=== PATIENT | female | born 1990 | race Caucasian/White ===

== ENCOUNTER 2024-03-14 22:05 | Emergency (ER) | payer OTHER, SELFPAY ==
[2024-03-14 22:08] VITALS: BP 141/74; PULSE 73; RESP 16; TEMP 36.5; O2SAT 100; BMI 21.2
--- NOTE | 2024-03-14 22:13 | CT_ITS ---
PROCEDURE INFORMATION: Exam: CTA Head With Contrast, Venography Exam date and time: 03/14/2024 11:12 PM Age: 33 years old Clinical indication: Pain; Headache; Additional info: Severe headache TECHNIQUE: Imaging protocol: Computed tomography angiography of the head with contrast. Exam focused on the veins. 3D rendering (Not supervised by radiologist): MIP and/or 3D reconstructed images were created by the technologist. Radiation optimization: All CT scans at this facility use at least one of these dose optimization techniques: automated exposure control; mA and/or kV adjustment per patient size (includes targeted exams where dose is matched to clinical indication); or iterative reconstruction. Contrast material: ISOVUE; Contrast volume: 80 ml; Contrast route: INTRAVENOUS (IV); COMPARISON: CT HEAD/BRAIN WO CON 03/14/2024 11:09 PM FINDINGS: Superior sagittal sinus: Patent. Straight sinus: Patent. Transverse sinuses: Patent. Sigmoid sinuses: Patent. Internal jugular veins: Limited visualized internal jugular veins are patent. Brain: No definite mass, mass effect, or midline shift. Cerebral ventricles: No ventriculomegaly. Soft tissues: Unremarkable. IMPRESSION: No venous thrombosis.
--- NOTE | 2024-03-14 22:13 | CT_ITS ---
PROCEDURE INFORMATION: Exam: CT Head Without Contrast Exam date and time: 03/14/2024 11:09 PM Age: 33 years old Clinical indication: Pain; Headache; Additional info: Severe headache TECHNIQUE: Imaging protocol: Computed tomography of the head without contrast. Radiation optimization: All CT scans at this facility use at least one of these dose optimization techniques: automated exposure control; mA and/or kV adjustment per patient size (includes targeted exams where dose is matched to clinical indication); or iterative reconstruction. COMPARISON: No relevant prior studies available. FINDINGS: Brain: Normal. No hemorrhage. Unremarkable white matter. No mass effect. Cerebral ventricles: No ventriculomegaly. Paranasal sinuses: Minimal left maxillary sinus mucosal thickening. Mild left ethmoid air cell mucosal thickening. Trace fluid in the left frontal sinus. Mastoid air cells: Visualized mastoid air cells are well aerated. Bones: Deformity of the left nasal bone. Soft tissues: Unremarkable. IMPRESSION: 1. No acute intracranial findings. Mild sinus disease. 2. Age indeterminate left nasal bone fracture.
--- NOTE | 2024-03-14 22:16 | ED_ITS ---
Discharge Plan Disposition Patient Disposition: Home, Self-Care Referrals Follow up/Referrals: Provider,MD Олег [Primary Care Provider] - See instructions Activity Restrictions/Add. Instructions Additional Instructions/Restrictions: Please follow-up with your primary care provider. Please return to the emergency department if you develop any new or worsening symptoms or become concerned for your health. Clinical Impressions Clinical Impression: Headache Qualifiers: Headache chronicity pattern: acute headache Print Language Print Language: [place] Discharge ED Provider: Clarke Galvan General Adult HPI <Clarke Galvan MD - Last Filed: 03/14/24 23:00> General Chief complaint: Headache Stated complaint: NGUYEN Time Seen by Provider: 03/14/24 22:07 Mode of Arrival: Ambulatory Source of Information: Patient Limitations: No Limitations Description of Symptoms (Recalled from ER Triage Doc. by RN): Pt states she has intense headache Pt will not open eyes and speech weak Pupils equal and reactive. Pain in front left of head HX of migrane History of Present Illness HPI narrative: Patient is a 33-year-old female who has past medical history of migraines not on controlled medication approximately 2 times a month presents to the emergency department for evaluation of headache. Onset was acute, over the last 30 minutes, bitemporal and retro-ocular left-sided worse than right. She has associated photophobia and phonophobia. No gait difficulties, no speech difficulties. No trauma. Denies ingestions. Due to severe symptoms she presents here for continued evaluation. Related Data Allergies Allergy/AdvReac Type Severity Reaction Status Date / Time No Known Allergies Allergy Verified 03/14/24 22:29 PFSH <Clarke Galvan MD - Last Filed: 03/14/24 23:00> PFS Disclaimer: The information contained in this section may have been updated after the patient was seen, as this information can be updated by other users. Social History (Updated 03/14/24 @ 23:00 by Clarke Galvan MD) Smoking Status: Current every day smoker alcohol intake: never current occupational status: other <Clarke Galvan MD - Last Filed: 03/14/24 23:00> ROS Obtained: Yes Systems reviewed as appropriate & no additional complaints except as documented Physical Exam <Clarke Galvan MD - Last Filed: 03/14/24 23:00> General General appearance: alert Comment: Appearing in pain in bed Head Head exam: atraumatic and normocephalic Eye Eye exam: Present PERRL and EOMI ENT ENT exam: Present mucous membranes moist Neck Neck exam: Present normal inspection Chest Chest inspection: Present normal inspection and symmetric chest wall rise Respiratory Respiratory exam: Present normal lung sounds bilaterally; Absent respiratory distress Cardiovascular Cardiovascular exam: Present regular rate and normal rhythm Abdominal Exam Abdominal exam: Present soft; Absent tenderness Extremities Exam Extremities exam: Present normal inspection Neurological Exam Neurological exam: Present alert and CN II-XII intact; Absent motor sensory deficit Psychiatric Psychiatric exam: Present normal affect Skin Skin exam: Present warm and dry Medical Decision Making <Clarke Galvan MD - Last Filed: 03/14/24 23:00> Medical Records Screening: Per USPSTF and CDC recommendations, given the prevalence of disease in our region, it is our hospital?s policy to screen for HIV and viral Hepatitis for all patients aged 18 and over and those with ongoing risk factors. Raj Inquiry Pt receiving controlled substance: No Vital Signs: 03/14/24 22:08 03/14/24 22:30 03/14/24 23:01 Temperature 97.7 F Temperature Source Axillary Pulse Rate Pulse Rate [Right Brachial] 73 Respiratory Rate 16 Blood Pressure 132/80 138/82 Blood Pressure [Right Arm] 141/74 H Blood Pressure Mean 103 100 Blood Pressure Mean [Right Arm] 96 Blood Pressure Source Blood Pressure Source [Right Arm] Automatic Cuff Blood Pressure Position [Right Arm] Supine 02 Sat by Pulse Oximetry 100 Oxygen Delivery Method Room Air 03/14/24 23:30 03/15/24 00:00 03/15/24 00:43 Temperature 98.0 F Temperature Source Oral Pulse Rate 70 70 Pulse Rate [Right Brachial] Respiratory Rate 19 20 Blood Pressure 97/49 L 93/54 L 111/64 Blood Pressure [Right Arm] Blood Pressure Mean 65 Blood Pressure Mean [Right Arm] Blood Pressure Source Automatic Cuff Blood Pressure Source [Right Arm] Blood Pressure Position [Right Arm] 02 Sat by Pulse Oximetry 98 Oxygen Delivery Method Room Air Lab Data Lab Results 03/14/24 22:19: WBC 16.4 H, RBC 4.79, Hgb 12.8, Hct 38.2, MCV 79.7 L, MCH 26.7 L , MCHC 33.5, RDW 19.3 H, Plt Count 300, MPV 7.8, Neut % (Auto) 78.6, Lymph % (Auto) 14.8, [place] % (Auto) 3.2, Eos % (Auto) 2.8, Baso % (Auto) 0.6, Neut # (Auto) 12.9 H, Lymph # (Auto) 2.4, [place] # (Auto) 0.5, Eos # (Auto) 0.5 H, Baso # (Auto) 0.1, Total Counted 100, Neutrophils % (Manual) 79 H, Lymphocytes % (Manual) 15, Monocytes % (Manual) 3, Eosinophils % (Manual) 3, Platelet Estimate Normal, Anisocytosis 1+, Microcytosis 1+, Sodium 139, Potassium 3.5, Chloride 107, Carbon Dioxide 26, Anion Gap 9.5, BUN 11, Creatinine 0.60, Estimated Creat Clear 117, Estimated GFR 117, Est GFR ( Amer) 141, Glucose 127 H, Calcium 8.8, Total Bilirubin 0.5, AST 21, ALT 15, Alkaline Phosphatase 58, Total Protein 6.1 L, Albumin 4.2, Globulin 1.9, Albumin/Globulin Ratio 2.2 H, Serum HCG, Qual Negative, Plasma/Serum Alcohol < 10 03/14/24 23:00: SARS-CoV-2 (PCR) Not detected, Influenza A Untype (PCR) Not detected, Influenza Type B (PCR) Not detected 03/14/24 22:19 03/14/24 22:19 Orders (Tests/Meds): ED MEDICATIONS Generic Name Dose Route Start Last Admin Trade Name Freq PRN Reason Stop Dose Admin Sodium Chloride 10 ml 03/14/24 23:19 03/14/24 23:20 Sodium Chloride 0.9% 10ml Syr (Rad Only) IV 04/13/24 23:18 10 ml NEEDED PRN Administration Maintain IV Site Discontinued Medications Generic Name Dose Route Start Last Admin Trade Name Freq PRN Reason Stop Dose Admin Acetaminophen 1,000 mg 03/14/24 22:13 03/14/24 22:35 Acetaminophen 1,000mg/100ml Vial IV 03/14/24 22:14 1,000 mg ONCE ONE Administration Diphenhydramine HCl 25 mg 03/14/24 22:15 03/14/24 22:41 Diphenhydramine 50mg/Ml Vial IV 03/14/24 22:16 25 mg ONCE ONE Administration Iopamidol 80 ml 03/14/24 23:19 03/14/24 23:20 Iopamidol-370 (76%);100ml Bottle IV 03/14/24 23:20 80 ml ONCE ONE Administration Ketorolac Tromethamine 30 mg 03/14/24 22:58 03/14/24 23:03 Ketorolac 30mg/Ml Vial IV 03/14/24 22:59 30 mg ONCE ONE Administration Prochlorperazine Edisylate 5 mg 03/14/24 22:13 03/14/24 22:35 Prochlorperazine 10mg/2ml Vial IV 03/14/24 22:14 5 mg ONCE ONE Administration Sodium Chloride 50 ml 03/14/24 23:19 03/14/24 23:20 0.9 % Sodium Chloride 50 Ml Vial IV 03/14/24 23:20 50 ml ONCE ONE Administration ORDERS Category Date Time Status CT Venogram head Stat Cat Scan 03/14/24 22:[address] head/brain wo con Stat Cat Scan 03/14/24 22:13 Completed CBC w/Auto Diff [Complete Blood Count Auto Diff] Stat Lab 03/14/24 22:19 Completed CMP [Comprehensive Metabolic Panel] Stat Lab 03/14/24 22:19 Completed Ethanol [Ethyl Alcohol] Stat Lab 03/14/24 22:19 Completed HCG Qualitative, Serum Stat Lab 03/14/24 22:19 Completed Rapid PCR Covid and Flu A/B Stat Lab 03/14/24 23:00 Completed Medical Decision Narrative: In summary patient is a 33-year-old female past medical history described above who presents emergency department for evaluation of severe headache. Patient is hemodynamically stable nontoxic-appearing upon arrival, afebrile. Differential includes migraine, venous sinus thrombosis, intracranial mass, among others. Workup be conducted with hematologic labs, CT head, CT venogram. Initial inventions include Compazine, diphenhydramine, IV Tylenol. Initial workup reviewed by me, leukocytosis 16.4, hCG negative, ethanol negative. Remainder of hematologic labs and CT imaging pending at time of transfer of care to the oncoming physician, Dr. Oliver. <Jose Oliver MD - Last Filed: 03/15/24 00:50> Vital Signs: 03/14/24 22:08 03/14/24 22:30 03/14/24 23:01 Temperature 97.7 F Temperature Source Axillary Pulse Rate Pulse Rate [Right Brachial] 73 Respiratory Rate 16 Blood Pressure 132/80 138/82 Blood Pressure [Right Arm] 141/74 H Blood Pressure Mean 103 100 Blood Pressure Mean [Right Arm] 96 Blood Pressure Source Blood Pressure Source [Right Arm] Automatic Cuff Blood Pressure Position [Right Arm] Supine 02 Sat by Pulse Oximetry 100 Oxygen Delivery Method Room Air 03/14/24 23:30 03/15/24 00:00 03/15/24 00:43 Temperature 98.0 F Temperature Source Oral Pulse Rate 70 70 Pulse Rate [Right Brachial] Respiratory Rate 19 20 Blood Pressure 97/49 L 93/54 L 111/64 Blood Pressure [Right Arm] Blood Pressure Mean 65 Blood Pressure Mean [Right Arm] Blood Pressure Source Automatic Cuff Blood Pressure Source [Right Arm] Blood Pressure Position [Right Arm] 02 Sat by Pulse Oximetry 98 Oxygen Delivery Method Room Air Lab Data Lab Results 03/14/24 22:19: WBC 16.4 H, RBC 4.79, Hgb 12.8, Hct 38.2, MCV 79.7 L, MCH 26.7 L , MCHC 33.5, RDW 19.3 H, Plt Count 300, MPV 7.8, Neut % (Auto) 78.6, Lymph % (Auto) 14.8, [place] % (Auto) 3.2, Eos % (Auto) 2.8, Baso % (Auto) 0.6, Neut # (Auto) 12.9 H, Lymph # (Auto) 2.4, [place] # (Auto) 0.5, Eos # (Auto) 0.5 H, Baso # (Auto) 0.1, Total Counted 100, Neutrophils % (Manual) 79 H, Lymphocytes % (Manual) 15, Monocytes % (Manual) 3, Eosinophils % (Manual) 3, Platelet Estimate Normal, Anisocytosis 1+, Microcytosis 1+, Sodium 139, Potassium 3.5, Chloride 107, Carbon Dioxide 26, Anion Gap 9.5, BUN 11, Creatinine 0.60, Estimated Creat Clear 117, Estimated GFR 117, Est GFR ( Amer) 141, Glucose 127 H, Calcium 8.8, Total Bilirubin 0.5, AST 21, ALT 15, Alkaline Phosphatase 58, Total Protein 6.1 L, Albumin 4.2, Globulin 1.9, Albumin/Globulin Ratio 2.2 H, Serum HCG, Qual Negative, Plasma/Serum Alcohol < 10 03/14/24 23:00: SARS-CoV-2 (PCR) Not detected, Influenza A Untype (PCR) Not detected, Influenza Type B (PCR) Not detected Orders (Tests/Meds): ED MEDICATIONS Generic Name Dose Route Start Last Admin Trade Name Piyushq PRN Reason Stop Dose Admin Sodium Chloride 10 ml 03/14/24 23:19 03/14/24 23:20 Sodium Chloride 0.9% 10ml Syr (Rad Only) IV 04/13/24 23:18 10 ml NEEDED PRN Administration Maintain IV Site Discontinued Medications Generic Name Dose Route Start Last Admin Trade Name Freq PRN Reason Stop Dose Admin Acetaminophen 1,000 mg 03/14/24 22:13 03/14/24 22:35 Acetaminophen 1,000mg/100ml Vial IV 03/14/24 22:14 1,000 mg ONCE ONE Administration Diphenhydramine HCl 25 mg 03/14/24 22:15 03/14/24 22:41 Diphenhydramine 50mg/Ml Vial IV 03/14/24 22:16 25 mg ONCE ONE Administration Iopamidol 80 ml 03/14/24 23:19 03/14/24 23:20 Iopamidol-370 (76%);100ml Bottle IV 03/14/24 23:20 80 ml ONCE ONE Administration Ketorolac Tromethamine 30 mg 03/14/24 22:58 03/14/24 23:03 Ketorolac 30mg/Ml Vial IV 03/14/24 22:59 30 mg ONCE ONE Administration Prochlorperazine Edisylate 5 mg 03/14/24 22:13 03/14/24 22:35 Prochlorperazine 10mg/2ml Vial IV 03/14/24 22:14 5 mg ONCE ONE Administration Sodium Chloride 50 ml 03/14/24 23:19 03/14/24 23:20 0.9 % Sodium Chloride 50 Ml Vial IV 03/14/24 23:20 50 ml ONCE ONE Administration ORDERS Category Date Time Status CT Venogram head Stat Cat Scan 03/14/24 22:[address] head/brain wo con Stat Cat Scan 03/14/24 22:13 Completed CBC w/Auto Diff [Complete Blood Count Auto Diff] Stat Lab 03/14/24 22:19 Completed CMP [Comprehensive Metabolic Panel] Stat Lab 03/14/24 22:19 Completed Ethanol [Ethyl Alcohol] Stat Lab 03/14/24 22:19 Completed HCG Qualitative, Serum Stat Lab 03/14/24 22:19 Completed Rapid PCR Covid and Flu A/B Stat Lab 03/14/24 23:00 Completed Medical Decision Narrative: In summary patient is a 33-year-old female past medical history described above who presents emergency department for evaluation of severe headache. Patient is hemodynamically stable nontoxic-appearing upon arrival, afebrile. Differential includes migraine, venous sinus thrombosis, intracranial mass, among others. Workup be conducted with hematologic labs, CT head, CT venogram. Initial inventions include Compazine, diphenhydramine, IV Tylenol. Initial workup reviewed by me, leukocytosis 16.4, hCG negative, ethanol negative. Remainder of hematologic labs and CT imaging pending at time of transfer of care to the oncoming physician, Dr. Oliver. Melody JORGENSEN: I assumed care of the patient at the time of handoff from the prior provider. On reassessment, patient is sleeping comfortably, reports improvement/resolution in headache. Laboratory results are nonactionable. CT imaging independently reviewed by me and shows no evidence of intracranial lesion, no evidence of intracranial thrombosis. These findings were communicated with patient's and they were discharged in stable condition with return precautions. Critical Care <Clarke Galvan MD - Last Filed: 03/14/24 23:00> Critical Care Time Critical Care Time: No
--- NOTE | 2024-03-14 22:19 | PC.NURSE ---
Accucheck 139
[2024-03-14 22:29] LABS: Basophils # 0.1 K/mm3 (0-0.2); Basophils % 0.6 % (0.1-2.0); Eosinophils # 0.5 K/mm3 (0.0-0.4); Eosinophils % 2.8 % (0.1-12.0); Hematocrit 38.2 % (37.0-47.0); Hemoglobin 12.8 g/dL (12.2-16.2); Lymphocytes # 2.4 K/mm3 (0.7-4.5); Lymphocytes % 14.8 % (10-50); Mean Corpuscular HGB Conc 33.5 g/dL (31.8-35.4); Mean Corpuscular Hemoglobin 26.7 pg (27.0-31.2); Mean Corpuscular Volume 79.7 fl (81-99); Mean Platelet Volume 7.8 fl (7.4-10.4); Monocytes # 0.5 K/mm3 (0.1-1.0); Monocytes % 3.2 % (1.7-9.3); Neutrophils # 12.9 K/mm3 (1.8-7.8); Neutrophils % 78.6 % (37.0-80.0); Platelet Count 300 K/mm3 (142-424); Red Blood Count 4.79 M/mm3 (4.20-5.40); Red Cell Distribution Width 19.3 % (11.5-17.5); White Blood Count 16.4 K/mm3 (4.8-10.8)
--- NOTE | 2024-03-14 22:29 | PC.NURSE ---
Yoon minor from [facility] AND sent
[2024-03-14 22:30] VITALS: BP 132/80
[2024-03-14 22:32] LABS: MANUAL DIFFERENTIAL MANUAL DIFFERENTIAL (MANUAL DIFF)
[2024-03-14] MEDS: PROCHLORPERAZINE 10MG/2ML VIAL 5 MG IV (22:35)
[2024-03-14] MEDS: ACETAMINOPHEN 1,000MG/100ML VIAL 1000 MG IV (22:35)
[2024-03-14] MEDS: diphenhydrAMINE 50MG/ML VIAL 25 MG IV (22:41)
--- NOTE | 2024-03-14 22:43 | PC.NURSE ---
Pt sleeping does not awaken to name at bedside States she sleeps like this ofter
[2024-03-14 22:52] LABS: HCG Qualitative, Serum Negative (Negative)
[2024-03-14 22:53] LABS: Ethyl Alcohol < 10 mg/dl (0-10)
[2024-03-14 22:58] LABS: Chloride 107 mmol/L (98-107)
[2024-03-14 22:59] LABS: Albumin Level 4.2 g/dl (3.5-5.0); Potassium 3.5 mmoL/L (3.5-5.1); Sodium 139 mmol/L (136-145)
[2024-03-14 23:01] VITALS: BP 138/82
[2024-03-14 23:01] LABS: Blood Urea Nitrogen 11 mg/dl (7-17); Creatinine Clearance Estimated 117 mL/min (50-200); Estimated Glomerular Filt Rate 117 ml/min (>60); GFR (African American) 141 ML/MIN (>60)
[2024-03-14 23:02] LABS: Alanine Aminotransferase 15 U/L (12-78); Albumin/Globulin Ratio 2.2 (1.1-1.8); Alkaline Phosphatase 58 U/L (38-126); Anion Gap 9.5 mEq/L (5-15); Aspartate Amino Transferase 21 U/L (14-36); Bilirubin,Total 0.5 mg/dl (0.2-1.3); Calcium 8.8 mg/dl (8.4-10.2); Carbon Dioxide 26 mmol/L (22.0-30.0); Globulin 1.9 g/dL (1.3-3.2); Glucose 127 mg/dl (74-100); Total Protein,Serum 6.1 g/dl (6.3-8.2)
[2024-03-14] MEDS: KETOROLAC 30MG/ML VIAL 30 MG IV (23:03)
--- NOTE | 2024-03-14 23:05 | PC.NURSE ---
Pt to CT scan via wheelchair
[2024-03-14 23:08] LABS: Coronavirus 19, PCR Not Detected (NotDetected); Influenza A, PCR Not Detected (NotDetected); Influenza B, PCR Not Detected (NotDetected)
[2024-03-14] MEDS: SODIUM CHLORIDE 0.9% 10ML SYR (RAD ONLY) 10 ML IV (23:20)
[2024-03-14] MEDS: IOPAMIDOL-370 (76%);100ML BOTTLE 80 ML IV (23:20)
[2024-03-14] MEDS: 0.9 % SODIUM CHLORIDE 50 ML VIAL IV (23:20)
[2024-03-14 23:30] VITALS: BP 97/49
[2024-03-14 23:57] LABS: Eosinophils % 3 % (0-3); Lymphocytes % 15 % (10-50); Monocytes % 3 % (2-9); Neutrophils % 79 % (42-76); Total Cells Counted 100
[2024-03-14 23:58] LABS: Anisocytosis 1+; Microcytosis 1+; Platelet Estimate Normal
[2024-03-15] VITALS: BP 93/54; PULSE 70; RESP 19; O2SAT 98
--- NOTE | 2024-03-15 00:08 | PC.NURSE ---
Pt sleeping assume no pain at this time
[2024-03-15 00:43] VITALS: BP 111/64; PULSE 70; RESP 20; TEMP 36.7; O2SAT 100
== END 2024-03-15 00:50 | disposition home or self-care (01) ==
PROVIDERS: Emergency Provider Emergency Medicine
DX: R51.9 Headache, unspecified (principal); H53.149 Visual discomfort, unspecified; F40.298 Other specified phobia
CPT/HCPCS: 70450; 70496; 80053; 80320; 84703; 85007; 85025; 85027; 87636; 96374; 96375; 99285; G0480; J0131; J0780; J1200; J1885; Q9967